=== PATIENT | female | born 1985 | race Caucasian/White ===

== ENCOUNTER 2019-03-14 19:25 | Inpatient (IN) | payer MEDICAID ==
[~2019-03-14] VITALS: Ht 165.1 cm; Wt 69.8 kg
[2019-03-14] MEDS ORDERED: SODIUM CHLORIDE FLUSH 10ML SYR IVF ONE (19:30)
--- NOTE | 2019-03-14 19:37 | NUR ---
PT ARRIVES VIA [facility] AFTER BEINGD FOUND AT A [facility]. PARENTS REPORT PT STOPPED ANSWERING CALLS FROM FAMILY SO FAMILY CALLED FOR WELFARE CHECK. PARENTS REPORT VODKA USE BY PT. PT PRESENTS WITH EYES CLOSED, NO SPEECH AND RESPONDING TO PAINFUL STIMULI ONLY. PT REPORTS WITH SKIN YELLOW AND EYES YELLO. ABD IS ROUNDED. PT MAINTAINING AIRWAY. PT ON FULL MONITORS. [facility] REPORTS BS OF 58 AND BP'S WITH SYSTOLIC IN THE 70'S. D10 HANGING BY [facility]. 11G PIV TO LEFT HAND STARTED BY [facility]. Addendum: 03/14/19 at 2125 by MRICH 22g PIV*
--- NOTE | 2019-03-14 19:50 | NUR ---
PARENTS AT BEDSIDE. PARENTS REPORT PT HAS BEEN KNOWN DRINK. PARENTS ARE UNSURE OF DRUG USE. PARENTS DENY ALLERGIES, ANY KNOWN MEDICATIONS OR MEDICAL PROBLEMS. LABS DRAWN. XRAY COMPLETE.
--- NOTE | 2019-03-14 19:51 | NUR ---
PHARMACY NOTIFIED OF NEED FOR D5. 18GPIV PLACED TO RIGHT AC. D10 CONTINUES TO RUN. PT ON BEAR HUGGER.
[2019-03-14] MEDS ORDERED: DEXTROSE 50%, 50ML SYRINGE IVPush ONE ×3 (20:00)
[2019-03-14] MEDS ORDERED: SODIUM CHLORIDE 0.9% 1,000ML IVBOLUS ONE (20:00)
[2019-03-14 20:07] LABS: ALANINE AMINOTRANSFERASE 205 U/L (12-78); ALBUMIN 1.4 g/dL (3.4-5.0); ANION GAP 28 mmol/L (5-15); CALCIUM 6.8 mg/dL (8.5-10.1); CHLORIDE 71 mmol/L (98-107)
--- NOTE | 2019-03-14 20:08 | NUR ---
STRAIGHT CATH PERFORMED FOR URINE SAMPLE. SCANT AMOUNT OF DARK BROWN, ODOROUS URINE NOTED. HEAD CHOPPER APPEARS TO HAVE FECAL MATERIAL AROUND BUTTOCK. RECTAL THEMOMETER NOTED TO HIT STOOL. CURRENT BS 301 AFTER D10 IN 250 FROM [facility] AND D5 IV PUSH GIVEN HERE. PT BEGINNING TO MOAN MORE AND HAVE INCREASED WITHDRAWAL FROM PAIN.
[2019-03-14 20:11] LABS: ALKALINE PHOSPHATASE 316 U/L (45-117); BASOPHILS # (AUTO) 0.02 x10^3/uL (0-0.1); BASOPHILS % (AUTO) 0 % (0-1); EOSINOPHILS % (AUTO) 0 % (1-7); LYMPHOCYTES % (AUTO) 8 % (22-44); MD SCAN; MEAN CORPUSCULAR HEMOGLOBIN 38.3 pg (27.0-34.8); MEAN CORPUSCULAR HGB CONC 35.5 g/dL (32.4-35.8); MEAN CORPUSCULAR VOLUME 107.7 fL (80-100); MEAN PLATELET VOLUME 8.4 fL (7.4-10.4); MONOCYTES # (AUTO) 0.43 x10^3/uL (0.2-0.8); MONOCYTES % (AUTO) 7 % (2-9); NEUTROPHILS # (AUTO) 4.97 x10^3/uL (1.8-6.8); NEUTROPHILS % (AUTO) 84 % (42-75); RED CELL DISTRIBUTION WIDTH 16.6 % (9.6-15.2)
[2019-03-14 20:13] LABS: PLATELET COUNT 37 x10^3/uL (130-400)
[2019-03-14 20:15] LABS: BILIRUBIN,TOTAL 23.2 mg/dL (0.2-1.0)
--- NOTE | 2019-03-14 20:15 | NUR ---
MARILYN FROM LAB CALLED WITH SODIUM 120, POTASSIUM 2.2, LACTIC ACID 13.2, AND BILI OF 23. JUAN DAVID FROM LAB CALLED WITH PLATELETS OF 37. NOTIFIED AT 2013.
[2019-03-14 20:16] LABS: CREATININE 4.86 mg/dL (0.55-1.02); TOTAL PROTEIN 4.8 g/dL (6.4-8.2)
[2019-03-14] MEDS ORDERED: SODIUM CHLORIDE 0.9% 1,000 ML IV ONE (20:28)
[2019-03-14] MEDS ORDERED: MAGNESIUM SULFATE PMX 2GM/50ML 50 ML IV ONE (20:30)
[2019-03-14] MEDS ORDERED: POTASSIUM CHLORIDE 40 MEQ in SODIUM CHLORIDE 0.9% 500 ML IV ONE (20:30)
[2019-03-14] MEDS ORDERED: NS + 40MEQ KCL 1,000 ML IV ONE (20:41)
[2019-03-14] MEDS ORDERED: MAGNESIUM SULFATE PMX 2GM/50ML 50 ML ONE (20:41)
[2019-03-14 20:43] LABS: ACETONE, SERUM Negative (Negative)
[2019-03-14] MEDS ORDERED: CALCIUM GLUCONATE 4.6 MEQ/10 ML ONE (20:51)
[2019-03-14] MEDS ORDERED: LACTULOSE 20 GM/30 ML UDC PO ONE (21:00)
[2019-03-14] MEDS ORDERED: CALCIUM GLUCONATE 0.46MEQ/1ML IVPush ONE (21:00)
[2019-03-14] MEDS ORDERED: POTASSIUM CHLORIDE 40 MEQ in LACTATED RINGERS 1,000 ML IV SCH (21:00)
--- NOTE | 2019-03-14 21:26 | NUR ---
18g placed to right EJ and 18g placed to left upper arm. Fluid/electroltye replacement continues. Pt is now responsive to non-painful stimuli - pt rubbing her face with her hands.
--- NOTE | 2019-03-14 21:29 | NUR ---
POC blood sugar 203.
[2019-03-14] MEDS ORDERED: PHYTONADIONE 10 MG/ML, 1ML SQ ONE (21:30)
[2019-03-14] MEDS ORDERED: PHYTONADIONE 10 MG/ML, 1ML ONE (21:40)
--- NOTE | 2019-03-14 21:48 | NUR ---
Anju, Iva, Venu, Agustin,
[2019-03-14] MEDS ORDERED: DOCUSATE 100 MG CAPSULE PO PRN (22:00)
[2019-03-14] MEDS ORDERED: OXYcodone IR 5MG TABLET PO PRN (22:00)
[2019-03-14] MEDS ORDERED: ONDANSETRON ODT 4 MG PO PRN (22:00)
[2019-03-14] MEDS ORDERED: BISACODYL 10 MG SUPP PR PRN (22:00)
[2019-03-14] MEDS ORDERED: ONDANSETRON 2MG/ML, 2ML IVPush PRN (22:00)
[2019-03-14] MEDS ORDERED: methylPREDNISolone SOD SUCC 40 MG/ML IV SCH (22:00)
[2019-03-14] MEDS ORDERED: PROMETHAZINE 25 MG/ML, 1ML IM PRN (22:00)
[2019-03-14] MEDS ORDERED: POTASSIUM CHLORIDE 40 MEQ in D5%-0.9% NACL 1,000 ML IV SCH (22:00)
[2019-03-14] MEDS ORDERED: POLYETHYLENE GLYCOL 17 GM PACKET PO PRN (22:00)
[2019-03-14] MEDS ORDERED: morphine SULFATE 10 MG/ML, 1ML IVPush PRN (22:00)
--- NOTE | 2019-03-14 22:12 | NUR ---
no ng per dr hudson d/t unable to access ng per rn aejanessa vit k was given d/t inr >5 md was aware bp is maintained by iv ns bolus at time of transfer discussed with dr hudson and dr do central line hold off at this time
--- NOTE | 2019-03-14 22:14 | NUR ---
given report to octavio pt is moaning a lot nut not responding from the staff move all extremities vss bp is stabilized at the russ
[2019-03-14 22:30] LABS: FREE T4 (FREE THYROXINE) 0.99 ng/dL (0.76-1.46)
[2019-03-14] MEDS ORDERED: LACTULOSE 3.3 GM/5 ML ORAL.SOL RC ONE (22:30)
[2019-03-15] VITALS (21 sets, daily range): BP systolic 85–124; BP diastolic 30–81
[2019-03-15] MEDS: PANTOPRAZOLE 40 MG IV IVPush SCH ×3 (00:22→22:22)
[2019-03-15] MEDS ORDERED: SODIUM CHLORIDE 0.9% 1,000ML IVBOLUS ONE (01:00)
[2019-03-15] MEDS ORDERED: THIAMINE 100 MG in SODIUM CHLORIDE 0.9% 50 ML IV SCH (01:30)
[2019-03-15] MEDS: NOREPINEPHRINE 8 MG in SODIUM CHLORIDE 0.9% 242 ML IV PRN ×3 (02:46→07:58)
[2019-03-15] MEDS ORDERED: PROPOFOL 100 ML IV PRN (04:13)
[2019-03-15] MEDS ORDERED: MAGNESIUM SULFATE PMX 2GM/50ML 50 ML IV ONE ×2 (04:30→09:30)
[2019-03-15] MEDS ORDERED: LIDOCAINE-MPF 1%, 2ML ENDO PRN (04:30)
[2019-03-15] MEDS ORDERED: PHARMACY MAY ADJ FOR RENAL FX MC SCH (04:30)
[2019-03-15] MEDS ORDERED: FENTANYL PF 100 MCG/2ML IVPush PRN (04:30)
[2019-03-15] MEDS: FOLIC ACID 1 MG in DEXTROSE 5% 50 ML IV SCH ×2 (04:51→09:14)
[2019-03-15] MEDS ORDERED: VECURONIUM 10 MG ONE (05:00)
[2019-03-15] MEDS ORDERED: PROPOFOL 10 MG/ML, 100ML IV ONE (05:00)
[2019-03-15] MEDS ORDERED: SODIUM CHLORIDE 0.9% PF 10ML ONE (05:00)
[2019-03-15] MEDS ORDERED: MIDAZOLAM 1 MG/ML, 5ML ONE (05:00)
[2019-03-15] MEDS ORDERED: ETOMIDATE 20 MG/10 ML ONE (05:00)
[2019-03-15] MEDS ORDERED: SUCCINYLCHOLINE 20 MG/ML, 10ML ONE (05:00)
[2019-03-15 06:39] LABS: MEAN CORPUSCULAR HEMOGLOBIN 37.6 pg (27.0-34.8); MEAN CORPUSCULAR HGB CONC 34.7 g/dL (32.4-35.8); MEAN CORPUSCULAR VOLUME 108.3 fL (80-100); MEAN PLATELET VOLUME 8.6 fL (7.4-10.4); PLATELET COUNT 81 x10^3/uL (130-400); RED BLOOD COUNT 2.16 x10^6/uL (3.82-5.3); RED CELL DISTRIBUTION WIDTH 17.3 % (9.6-15.2)
[2019-03-15 06:47] LABS: ALBUMIN 1.3 g/dL (3.4-5.0); ANION GAP 27 mmol/L (5-15); CALCIUM 6.1 mg/dL (8.5-10.1); CHLORIDE 90 mmol/L (98-107)
[2019-03-15 06:59] LABS: BASOPHILS # (AUTO) 0.04 x10^3/uL (0-0.1); BASOPHILS % (AUTO) 0 % (0-1); EOSINOPHILS # (AUTO) 0.11 x10^3/uL (0-0.4); EOSINOPHILS % (AUTO) 1 % (1-7); LYMPHOCYTES # (AUTO) 1.71 x10^3/uL (1-3.4); LYMPHOCYTES % (AUTO) 15 % (22-44); MD SCAN; MONOCYTES # (AUTO) 1.11 x10^3/uL (0.2-0.8); MONOCYTES % (AUTO) 9 % (2-9); NEUTROPHILS # (AUTO) 8.77 x10^3/uL (1.8-6.8); NEUTROPHILS % (AUTO) 75 % (42-75)
[2019-03-15 07:14] LABS: ALANINE AMINOTRANSFERASE 203 U/L (12-78); ALKALINE PHOSPHATASE 296 U/L (45-117); HDL CHOLESTEROL (DIRECT) 15 mg/dL (40-60)
[2019-03-15 07:43] LABS: CHOL/HDL RATIO 3.3; VLDL CHOLESTEROL 41 mg/dL (0-25)
[2019-03-15 07:55] LABS: CREATININE 4.86 mg/dL (0.55-1.02)
[2019-03-15 07:56] LABS: TOTAL PROTEIN 4.2 g/dL (6.4-8.2); TRIGLYCERIDES 207 mg/dL (50-200)
[2019-03-15 07:57] LABS: CHOLESTEROL, TOTAL < 50 mg/dL (140-239)
[2019-03-15] MEDS ORDERED: DEXTROSE 4 GM TAB.CHEW PO PRN (09:00)
[2019-03-15] MEDS ORDERED: DEXTROSE 50%, 50ML SYRINGE IVPush PRN (09:00)
[2019-03-15] MEDS ORDERED: GLUCAGON 1 MG IM PRN (09:00)
[2019-03-15] MEDS: SODIUM CHLORIDE FLUSH 10ML SYR IVF SCH ×2 (09:15→19:42)
[2019-03-15] MEDS ORDERED: AMPICILLIN/SULBACTAM 3 GM in SODIUM CHLORIDE 0.9% 100 ML IV SCH (10:00)
[2019-03-15] MEDS ORDERED: PHARMACY MAY ADJ FOR RENAL FX MC PRN (10:00)
[2019-03-15] MEDS: LACTULOSE 20 GM/30 ML UDC PO SCH ×3 (10:00→20:05)
[2019-03-15] MEDS ORDERED: ALBUMIN HUMAN 25% 100 ML IV SCH (10:30)
[2019-03-15] MEDS ORDERED: SODIUM BICARBONATE 8.4% 150 MEQ in DEXTROSE 5% 1,000 ML IV SCH (11:00)
[2019-03-15] MEDS ORDERED: DEXTROSE 5% IV ONE (11:00)
[2019-03-15] MEDS ORDERED: ACETYLCYSTEINE IV ONE (11:00)
[2019-03-15] MEDS: HYDROCORTISONE 100 MG INJ. IVPush SCH ×3 (11:03→22:23)
[2019-03-15] MEDS: MIDODRINE 5 MG TABLET NG SCH ×3 (11:07→20:05)
[2019-03-15] MEDS: CIPROFLOXACIN/PMX 400MG/200ML 200 ML IV SCH (11:10)
[2019-03-15] MEDS ORDERED: MICROFIBRILLAR COLLAGEN 1 GM TP ONE (11:30)
[2019-03-15] MEDS: PHENYLEPHRINE 50 MG in SODIUM CHLORIDE 0.9% 245 ML IV PRN ×3 (11:40→22:39)
[2019-03-15] MEDS ORDERED: ALBUMIN HUMAN 25% 100 ML IV ONE (12:00)
[2019-03-15] MEDS: METRONIDAZOLE PMX 500MG/100ML 100 ML IV SCH ×2 (12:09→19:42)
[2019-03-15] MEDS ORDERED: ACETYLCYSTEINE 3,000 MG in DEXTROSE 5% 500 ML IV ONE (12:30)
[2019-03-15] MEDS: NOREPINEPHRINE 32 MG in SODIUM CHLORIDE 0.9% 218 ML IV PRN ×2 (12:35→22:18)
[2019-03-15] MEDS ORDERED: SODIUM BICARB 8.4%, 50ML SYRINGE IVPush ONE (13:00)
[2019-03-15] MEDS ORDERED: SODIUM BICARB 8.4%, 50ML SYRINGE ONE (13:10)
[2019-03-15 14:47] LABS: MEAN CORPUSCULAR HEMOGLOBIN 38.3 pg (27.0-34.8); MEAN CORPUSCULAR HGB CONC 34.1 g/dL (32.4-35.8); MEAN CORPUSCULAR VOLUME 112.4 fL (80-100); RED BLOOD COUNT 1.06 x10^6/uL (3.82-5.3)
[2019-03-15 14:49] LABS: ALANINE AMINOTRANSFERASE 167 U/L (12-78); ALBUMIN 1.8 g/dL (3.4-5.0); ANION GAP 32 mmol/L (5-15); CHLORIDE 88 mmol/L (98-107); CREATININE 4.93 mg/dL (0.55-1.02)
[2019-03-15 14:52] LABS: ALKALINE PHOSPHATASE 146 U/L (45-117); TOTAL PROTEIN 3.3 g/dL (6.4-8.2)
[2019-03-15 14:56] LABS: CALCIUM 5.6 mg/dL (8.5-10.1)
[2019-03-15] MEDS ORDERED: SODIUM BICARBONATE 1 MEQ/ML, 50ML VIAL IVPush STA (15:10)
[2019-03-15] MEDS ORDERED: CALCIUM CHLORIDE 10%, 10ML SYR ONE (15:16)
[2019-03-15] MEDS ORDERED: CALCIUM CHLORIDE 10%, 10ML SYR IVPush ONE (15:30)
[2019-03-15 15:40] LABS: MEAN PLATELET VOLUME 8.9 fL (7.4-10.4)
[2019-03-15 15:41] LABS: PLATELET COUNT 53 x10^3/uL (130-400)
[2019-03-15 15:51] LABS: PROTHROMBIN TIME > 148.7 Seconds (9.6-11.5)
[2019-03-15 15:52] LABS: INTERNATIONAL NORMALIZED RATIO > 12.00 (0.93-1.1)
[2019-03-15 15:53] LABS: PARTIAL THROMBOPLASTIN TIME > 153 Seconds (25-31)
[2019-03-15 15:58] LABS: CULTURE INDICATED? YES; MICROSCOPIC INDICATED
[2019-03-15 16:01] LABS: CHLORIDE,URINE RANDOM 152 mmol/L; SODIUM,URINE RANDOM 151 mmol/L
[2019-03-15 16:02] LABS: POTASSIUM,URINE RANDOM < 1 mmol/L
[2019-03-15] MEDS ORDERED: ACETYLCYSTEINE 6,000 MG in DEXTROSE 5% 1,000 ML IV SCH (16:30)
[2019-03-15] MEDS: RIFAXIMIN 550 MG TABLET PO SCH (16:33)
[2019-03-15 16:58] LABS: MD YES
[2019-03-15 18:07] LABS: BAND#(MANUAL) 0.97 x10^3/uL; BANDS%(MANUAL) 19 % (0-7); LYMPH#(MANUAL) 1.02 x10^3/uL (1-3.4); LYMPHS% (MANUAL) 20 % (22-44); MONOS#(MANUAL) 0.15 x10^3/uL (0.3-2.7); MONOS% (MANUAL) 3 % (2-9); NRBC % (MANUAL) 5 % (0-1); REACTIVE LYMPHS % (MANUAL) 2 % (0-0); SEG#(MANUAL) 2.86 x10^3/uL (1.8-6.8); SEGS% (MANUAL) 56 % (42-75)
[2019-03-15 18:09] LABS: POLYCHROMASIA 1+
[2019-03-15 18:12] LABS: OVALOCYTES 1+
[2019-03-15 18:14] LABS: <PLATELET ESTIMATE> DECREASED; <PLT MORPHOLOGY> NORMAL PLT MORPH
[2019-03-15] MEDS: SODIUM BICARBONATE 8.4% 150 MEQ in DEXTROSE 5% 1,000 ML IV SCH ×2 (18:31→22:56)
[2019-03-15 18:40] LABS: MD YES; MEAN CORPUSCULAR HGB CONC 34.4 g/dL (32.4-35.8); MEAN CORPUSCULAR VOLUME 93.2 fL (80-100); MEAN PLATELET VOLUME 8.4 fL (7.4-10.4); PLATELET COUNT 78 x10^3/uL (130-400); RED BLOOD COUNT 3.12 x10^6/uL (3.82-5.3); RED CELL DISTRIBUTION WIDTH 20.2 % (9.6-15.2)
[2019-03-15 18:42] LABS: ANION GAP 33 mmol/L (5-15); CALCIUM 7.6 mg/dL (8.5-10.1); CHLORIDE 89 mmol/L (98-107); CREATININE 4.38 mg/dL (0.55-1.02)
[2019-03-15 18:43] LABS: INTERNATIONAL NORMALIZED RATIO 1.45 (0.93-1.1); PROTHROMBIN TIME 15.4 Seconds (9.6-11.5)
[2019-03-15] MEDS ORDERED: POTASSIUM CHLORIDE 40 MEQ in SODIUM CHLORIDE 0.9% 100 ML IV ONE (19:00)
[2019-03-15 20:36] LABS: BAND#(MANUAL) 1.56 x10^3/uL; BANDS%(MANUAL) 30 % (0-7); LYMPH#(MANUAL) 0.99 x10^3/uL (1-3.4); LYMPHS% (MANUAL) 19 % (22-44); METAMYELOCYTES# (MANUAL) 0.21 x10^3/uL (0-0); METAMYELOCYTES% (MANUAL) 4 % (0-1); MONOS#(MANUAL) 0.36 x10^3/uL (0.3-2.7); MONOS% (MANUAL) 7 % (2-9); NRBC % (MANUAL) 6 % (0-1); SEG#(MANUAL) 2.08 x10^3/uL (1.8-6.8); SEGS% (MANUAL) 40 % (42-75)
[2019-03-15 20:40] LABS: CRENATED 1+; OVALOCYTES 1+; POLYCHROMASIA 1+
[2019-03-15 20:43] LABS: TEAR DROPS 1+
[2019-03-15 20:44] LABS: <PLATELET ESTIMATE> DECREASED; <PLT MORPHOLOGY> NORMAL PLT MORPH
[2019-03-15 20:45] LABS: PAPPENHEIMER BODIES 1+
[2019-03-15] MEDS ORDERED: POTASSIUM CHLORIDE 40 MEQ in D5%-0.9% NACL 1,000 ML IV SCH (22:00)
[2019-03-16 00:07] LABS: MEAN CORPUSCULAR HEMOGLOBIN 31.8 pg (27.0-34.8); MEAN CORPUSCULAR HGB CONC 34.5 g/dL (32.4-35.8); MEAN CORPUSCULAR VOLUME 92.2 fL (80-100); RED BLOOD COUNT 2.68 x10^6/uL (3.82-5.3); RED CELL DISTRIBUTION WIDTH 20.1 % (9.6-15.2)
[2019-03-16 00:18] LABS: ALBUMIN 2.2 g/dL (3.4-5.0); ANION GAP 36 mmol/L (5-15); CALCIUM 6.8 mg/dL (8.5-10.1); CHLORIDE 88 mmol/L (98-107)
[2019-03-16 00:29] LABS: ALANINE AMINOTRANSFERASE 217 U/L (12-78); ALKALINE PHOSPHATASE 164 U/L (45-117)
[2019-03-16 00:31] LABS: CREATININE 4.46 mg/dL (0.55-1.02); TOTAL PROTEIN 4.3 g/dL (6.4-8.2)
[2019-03-16 00:32] LABS: BILIRUBIN,TOTAL 20.9 mg/dL (0.2-1.0)
[2019-03-16 00:40] LABS: MD YES; MEAN PLATELET VOLUME 7.4 fL (7.4-10.4); PLATELET COUNT 95 x10^3/uL (130-400)
[2019-03-16 00:44] LABS: BAND#(MANUAL) 2.67 x10^3/uL; BANDS%(MANUAL) 30 % (0-7); LYMPH#(MANUAL) 0.98 x10^3/uL (1-3.4); LYMPHS% (MANUAL) 11 % (22-44); MONOS% (MANUAL) 9 % (2-9); NRBC % (MANUAL) 2 % (0-1); SEG#(MANUAL) 4.45 x10^3/uL (1.8-6.8); SEGS% (MANUAL) 50 % (42-75)
[2019-03-16 00:45] LABS: ANISOCYTOSIS 1+; HYPOCHROMIA 1+; POLYCHROMASIA 1+
[2019-03-16 00:46] LABS: CRENATED 1+; OVALOCYTES 1+
[2019-03-16 00:48] LABS: <PLATELET ESTIMATE> DECREASED; <PLT MORPHOLOGY> NORMAL PLT MORPH
[2019-03-16] MEDS ORDERED: PHENYLEPHRINE 100 MG in SODIUM CHLORIDE 0.9% 240 ML IV PRN (00:52)
[2019-03-16] MEDS ORDERED: POTASSIUM CHLORIDE 40 MEQ in SODIUM CHLORIDE 0.9% 100 ML IV ONE ×2 (01:00→05:30)
[2019-03-16] MEDS ORDERED: CALCIUM CHLORIDE 10%, 10ML SYR IVPush ONE ×2 (01:00→05:30)
[2019-03-16] MEDS ORDERED: THIAMINE 200 MG in SODIUM CHLORIDE 0.9% 50 ML IV SCH (01:30)
[2019-03-16] MEDS: METRONIDAZOLE PMX 500MG/100ML 100 ML IV SCH (04:17)
[2019-03-16] MEDS: CIPROFLOXACIN/PMX 400MG/200ML 200 ML IV SCH (04:18)
[2019-03-16] MEDS: HYDROCORTISONE 100 MG INJ. IVPush SCH (04:20)
[2019-03-16] MEDS: RIFAXIMIN 550 MG TABLET PO SCH (04:20)
[2019-03-16 04:56] LABS: ALANINE AMINOTRANSFERASE 225 U/L (12-78); ALBUMIN 1.9 g/dL (3.4-5.0); ANION GAP 35 mmol/L (5-15); CALCIUM 7.8 mg/dL (8.5-10.1); CHLORIDE 89 mmol/L (98-107); CREATININE 4.57 mg/dL (0.55-1.02)
[2019-03-16] MEDS: NOREPINEPHRINE 32 MG in SODIUM CHLORIDE 0.9% 218 ML IV PRN (04:59)
[2019-03-16 05:04] LABS: % IRON SATURATION 100 % (20-55); ALKALINE PHOSPHATASE 167 U/L (45-117); CREATINE KINASE, TOTAL 948 U/L (26-192); IRON LEVEL 139 mcg/dL (50-170); TOTAL IRON BINDING CAPACITY 139 mcg/dL (250-450); TOTAL PROTEIN 3.8 g/dL (6.4-8.2)
[2019-03-16 05:07] LABS: BILIRUBIN,TOTAL 20.5 mg/dL (0.2-1.0); MEAN CORPUSCULAR HEMOGLOBIN 31.9 pg (27.0-34.8); MEAN CORPUSCULAR HGB CONC 34.2 g/dL (32.4-35.8); MEAN CORPUSCULAR VOLUME 93.3 fL (80-100); RED BLOOD COUNT 2.56 x10^6/uL (3.82-5.3); RED CELL DISTRIBUTION WIDTH 20.8 % (9.6-15.2)
[2019-03-16] MEDS ORDERED: SODIUM BICARBONATE 1 MEQ/ML, 50ML VIAL IVPush STA (05:08)
[2019-03-16 05:10] LABS: MEAN PLATELET VOLUME 7.3 fL (7.4-10.4); PLATELET COUNT 58 x10^3/uL (130-400)
[2019-03-16 05:12] LABS: MD YES
[2019-03-16 05:16] LABS: ANISOCYTOSIS 1+; BAND#(MANUAL) 1.68 x10^3/uL; BANDS%(MANUAL) 29 % (0-7); HYPOCHROMIA 1+; LYMPHS% (MANUAL) 12 % (22-44); METAMYELOCYTES# (MANUAL) 0.06 x10^3/uL (0-0); METAMYELOCYTES% (MANUAL) 1 % (0-1); MONOS#(MANUAL) 0.46 x10^3/uL (0.3-2.7); MONOS% (MANUAL) 8 % (2-9); NRBC % (MANUAL) 5 % (0-1); POLYCHROMASIA 1+; SEGS% (MANUAL) 50 % (42-75)
[2019-03-16 05:17] LABS: <PLATELET ESTIMATE> DECREASED; <PLT MORPHOLOGY> NORMAL PLT MORPH; CRENATED 1+; OVALOCYTES 1+
[2019-03-16 05:21] LABS: INTERNATIONAL NORMALIZED RATIO 2.51 (0.93-1.1); PROTHROMBIN TIME 26.9 Seconds (9.6-11.5)
[2019-03-16] MEDS ORDERED: NS + 40MEQ KCL 1,000 ML IV SCH (05:30)
[2019-03-16] MEDS: EPINEPHRINE 5 MG in SODIUM CHLORIDE 0.9% 245 ML IV PRN ×2 (07:11→09:06)
[2019-03-16] MEDS ORDERED: FOLIC ACID 1 MG in DEXTROSE 5% 50 ML IV SCH (09:00)
[2019-03-16] MEDS ORDERED: OCTREOTIDE 500 MCG in SODIUM CHLORIDE 0.9% 99 ML IV PRN (09:30)
[2019-03-16] MEDS ORDERED: VASOPRESSIN 20 UNIT in SODIUM CHLORIDE 0.9% 99 ML IV PRN (09:30)
[2019-03-16] MEDS ORDERED: ATROPINE OPHTH SOLN 1%, 2ML PO PRN (10:30)
[2019-03-16] MEDS ORDERED: SCOPOLAMINE 1MG PATCH TD PRN (10:30)
[2019-03-16] MEDS ORDERED: morphine SULFATE 10 MG/ML, 1ML IV PRN (10:30)
[2019-03-16] MEDS ORDERED: ONDANSETRON 2MG/ML, 2ML IV PRN (10:30)
[2019-03-16] MEDS ORDERED: morphine SULFATE 10 MG/ML, 1ML IV ONE (10:30)
[2019-03-16] MEDS ORDERED: LORazepam 2 MG/ML, 1ML IV ONE (10:30)
[2019-03-16] MEDS ORDERED: LORazepam 2 MG/ML, 1ML IV PRN (10:30)
[2019-03-16] MEDS ORDERED: SODIUM BICARBONATE 8.4% 150 MEQ in DEXTROSE 5% 1,000 ML IV SCH ×2 (11:00→15:25)
[2019-03-16 13:41] LABS: ANA SCREEN NEGATIVE (Negative)
== END 2019-03-16 10:45 | disposition expired | DRG 720 ==
LOC: ED 19:42 → EDIP 20:28 → CCU 22:20
PROVIDERS: ADMIT Internal Medicine; ATTEND Internal Medicine
PROC: 5A1945Z Respiratory Ventilation, 24-96 Consecutive Hours (ICD-10-PCS; principal; 2019-03-15)
PROC: 0BH17EZ Insertion of Endotracheal Airway into Trachea, Via Natural or Artificial Opening (ICD-10-PCS; 2019-03-15)
PROC: 30233K1 Transfusion of Nonautologous Frozen Plasma into Peripheral Vein, Percutaneous Approach (ICD-10-PCS; 2019-03-15)
PROC: 30233N1 Transfusion of Nonautologous Red Blood Cells into Peripheral Vein, Percutaneous Approach (ICD-10-PCS; 2019-03-15)
PROC: 30233R1 Transfusion of Nonautologous Platelets into Peripheral Vein, Percutaneous Approach (ICD-10-PCS; 2019-03-15)
PROC: 30233M1 Transfusion of Nonautologous Plasma Cryoprecipitate into Peripheral Vein, Percutaneous Approach (ICD-10-PCS; 2019-03-15)
PROC: 0T9B70Z Drainage of Bladder with Drainage Device, Via Natural or Artificial Opening (ICD-10-PCS; 2019-03-15)
PROC: 02H633Z Insertion of Infusion Device into Right Atrium, Percutaneous Approach (ICD-10-PCS; 2019-03-15)
PROC: B548ZZA Ultrasonography of Superior Vena Cava, Guidance (ICD-10-PCS; 2019-03-15)
PROC: 03HY32Z Insertion of Monitoring Device into Upper Artery, Percutaneous Approach (ICD-10-PCS; 2019-03-15)
PROC: 0B918ZZ Drainage of Trachea, Via Natural or Artificial Opening Endoscopic (ICD-10-PCS; 2019-03-15)
DX: A41.9 Sepsis, unspecified organism (principal); J96.01 Acute respiratory failure with hypoxia; D65 Disseminated intravascular coagulation [defibrination syndrome]; K72.00 Acute and subacute hepatic failure without coma; J69.0 Pneumonitis due to inhalation of food and vomit; K76.7 Hepatorenal syndrome; D62 Acute posthemorrhagic anemia; E11.649 Type 2 diabetes mellitus with hypoglycemia without coma; K70.11 Alcoholic hepatitis with ascites; R57.9 Shock, unspecified; D68.4 Acquired coagulation factor deficiency; E87.1 Hypo-osmolality and hyponatremia; E87.2 Acidosis; F10.288 Alcohol dependence with other alcohol-induced disorder; Z99.11 Dependence on respirator [ventilator] status; N17.9 Acute kidney failure, unspecified; K74.60 Unspecified cirrhosis of liver; E83.42 Hypomagnesemia; E83.51 Hypocalcemia; E86.1 Hypovolemia; E87.6 Hypokalemia; D53.9 Nutritional anemia, unspecified; E11.65 Type 2 diabetes mellitus with hyperglycemia; E78.1 Pure hyperglyceridemia; K82.8 Other specified diseases of gallbladder; Z51.5 Encounter for palliative care; Z87.891 Personal history of nicotine dependence; Z91.19 Patient's noncompliance with other medical treatment and regimen
CPT/HCPCS: 36415; 36600; 85730; 96374; 99291; J7042; 31624; 36430; 70450; 71045; 74176; 80048; 80053; 80061; 80074; 80307; 81001; 82010; 82140; 82306; 82330; 82436; 82550; 82607; 82803; 82962; 83036; 83516; 83540; 83550; 83605; 83690; 83735; 83880; 84100; 84133; 84300; 84439; 84443; 84478; 84703; 85014; 85018; 85025; 85384; 85610; 86038; 86850; 86900; 86923; 87040; 87070; 87077; 87081; 87086; 87186; 87205; 93005; 94002; 94003; G0378; J0132; J0171; J0610; J0744; J2250; J2704; J3010; J3411; J3430; J3480; J7060; J7070; P9047; C9113; J0330; J1720; J2060; J2270; J2370; J2920; J3475; J7030; J7040; J7050; P9012; P9016; P9017; P9035